=== PATIENT | female | born 1985 | race Caucasian/White ===

== ENCOUNTER 2019-09-08 09:40 | Outpatient (CLI) | payer OTHER, SELFPAY ==
--- NOTE | 2019-09-08 | XR_ITS ---
WS: [id number] Right hand, 3 views, 09/08/2019 Clinical Data: RIGHT HAND PAIN Comparison: None. Findings: There is a fracture of the base of the right fifth metacarpal. No other fractures are seen. There are no dislocations. The carpal bones and phalanges are intact. Th e joint spaces are normal. XR/XR hand RT min 3V* [id number] Impression: Fracture of the base of right fifth metacarpal.
== END 2019-09-08 09:41 | disposition home or self-care (01) ==
LOC: RADOUTREAD 15:43
PROVIDERS: Family Provider Family Medicine; PCP Family Medicine; Referring Provider Nurse Practitioner Family; Visit Provider Nurse Practitioner Family
DX: S62.316A Displaced fracture of base of fifth metacarpal bone, right hand, initial encounter for closed fracture (principal); W22.8XXA Striking against or struck by other objects, initial encounter; M79.641 Pain in right hand

== ENCOUNTER → 2019-09-18 13:59 | Outpatient (BNVA) | payer OTHER, SELFPAY | PROVIDERS: Family Provider Family Medicine; PCP Family Medicine; Referring Provider Nurse Practitioner Family; Visit Provider Orthopaedic Surgery | DX: S62.316A Displaced fracture of base of fifth metacarpal bone, right hand, initial encounter for closed fracture (principal); X58.XXXA Exposure to other specified factors, initial encounter | CPT/HCPCS: 73130 ==

== ENCOUNTER 2024-08-10 13:57 | Emergency (ER) | payer OTHER, SELFPAY ==
[2024-08-10 14:11] VITALS: BP 120/86; PULSE 99; RESP 18; TEMP 36.7; O2SAT 99; BMI 33.2
--- NOTE | 2024-08-10 15:15 | CTR_ITS ---
PROCEDURE INFORMATION: Exam: CT Abdomen And Pelvis With Contrast Exam date and time: 08/10/2024 4:10 PM Age: 39 years old Clinical indication: Abdominal pain; Localized; Lower; Additional info: Abd pain TECHNIQUE: Imaging protocol: Computed tomography of the abdomen and pelvis with contrast. Radiation optimization: All CT scans at this facility use at least one of these dose optimization techniques: automated exposure control; mA and/or kV adjustment per patient size (includes targeted exams where dose is matched to clinical indication); or iterative reconstruction. Contrast material: OMNIPAQUE 350; Contrast volume: 100 ml; Contrast route: INTRAVENOUS (IV); COMPARISON: No relevant prior studies available. RADIATION DOSE METRICS: Total DLP (mGy-cm): 714.4 FINDINGS: Liver: Normal. No mass. Gallbladder and biliary ducts: Layering density in the gallbladder lumen. No gallbladder wall thickening. No biliary ductal dilatation. Pancreas: Normal. No ductal dilation. Spleen: Normal. No splenomegaly. Adrenal glands: 1.2 cm low-density left adrenal nodule. Kidneys and ureters: Normal. No hydronephrosis. Stomach and bowel: A few scattered colonic diverticula are seen. No evidence of acute diverticulitis. A few prominent fluid-filled small bowel loops are seen centrally in the abdomen. No evidence of bowel obstruction. Appendix: No evidence of appendicitis. Intraperitoneal space: Unremarkable. No free air. No significant fluid collection. Vasculature: Unremarkable. No abdominal aortic aneurysm. Lymph nodes: Trace fat stranding along the mesenteric root with a few mildly prominent mesenteric lymph nodes. Urinary bladder: Unremarkable as visualized. Reproductive: Unremarkable as visualized. Bones/joints: Unremarkable. No acute fracture. Soft tissues: Small fat containing umbilical hernia. CT/CT abdomen pelvis w con* [id number] IMPRESSION: 1. Mildly prominent fluid-filled small bowel loops could represent enteritis. No evidence of bowel obstruction. 2. Layering density in the gallbladder lumen could represent sludge/stones. No CT evidence of acute cholecystitis. 3. Trace mesenteric root fat stranding with a few mildly prominent mesenteric lymph nodes. Findings are nonspecific but can be seen with sclerosing mesenteritis among other etiologies. 4. 1.2 cm left adrenal nodule likely represents a benign lipid rich adenoma or possibly myelolipoma. No follow-up is necessary. (Reference: Malena) REFERENCES: Malena PHOENIX, et al. Management of Incidental Adrenal Masses: A White Paper of the ACR Incidental Findings Committee. J Am [employer] Radiol. 2017;14(8):1731-8359.
--- NOTE | 2024-08-10 15:35 | ED_ITS ---
HPI - Nausea/Vomiting/Diarrhea 2 General: Chief complaint: Nausea/Vomiting/Diarrhea Stated complaint: blood in stool and vomit Time Seen by Provider: 08/10/24 14:23 Source: patient Mode of arrival: ambulatory Limitations: no limitations History of Present Illness: 39-year-old female who states that she h as been having nausea vomiting diarrhea since yesterday states she has had multiple episodes she has been having diffuse abdominal cramping states she had a small amount of blood she had noticed in her vomiting and diarrhea today but not much. She denies any fevers denies any worse or improving factors Associated nausea: Yes Associated symtoms: Reports nausea; Denies chest pain, dysuria or headache(s) Related Data Previous Rx's Medication Instructions Recorded fluticasone propionate 50 1 spray intranasal DAILY PRN 10/08/23 mcg/actuation nasal allergy symptoms #16 grams spray,suspension (Flonase Allergy Relief) ondansetron 4 mg disintegrating 4 mg PO Q6H PRN nausea and 08/10/24 tablet vomiting #14 tabs Allergies Allergy/AdvReac Type Severity Reaction Status Date / Time penicillin G Allergy ADR-Vomitin Verified 10/08/23 12:06 g Review of Systems 2 Const: Denies: fever(s), chills, body aches or change in appetite ENMT: Denies: throat pain or dental pain Card: Denies: chest pain Resp: Denies: dyspnea GI: Reports: abdominal pain, nausea and vomiting; Denies: diarrhea : Denies: dysuria Musc: Denies: neck pain or back pain Skin/Breast: Denies: rash Neuro: Denies: headache(s) PFSH ED 2 PFSH: Social History Smoking and tobacco/nicotine status: former use of tobacco/nicotine Physical Exam 2 Const: COMMON NORMALS: no acute distress, patient oriented x3 and healthy appearing HENMT: COMMON NORMALS: normocephalic and atraumatic HEAD & SCALP: n ormocephalic and atraumatic Neck/C-Spine: COMMON NORMALS: full ROM and supple Chest: COMMONS NORMALS: normal inspection of the chest Resp: COMMON NORMALS: normal respiratory effort Cardio: COMMON NORMALS: regular rate, regular rhythm and No murmurs present (Cardio) RATE: regular rate RHYTHM: regular rhythm GI: COMMON NORMALS: Normal to inspection, nondistended, normoactive bowel sounds present, Soft to palpation and no masses PALPATION: Yes Soft to palpation OTHER: Mild abdominal tenderness Extremity: COMMON NORMALS: normal to inspection and full ROM Neuro: COMMON NORMALS: patient oriented x3, moves all extremities and no focal motor deficits Psych: COMMON NORMALS: mental status grossly normal, Normal thought process present and cooperative THOUGHT PROCESS: Normal thought process present Skin: COMMON NORMALS: no rashes or lesions noted and no wounds GENERAL SKIN EXAM: no rashes or lesions noted Course 2 Vital Signs: Vital signs: Vital Signs Temperature 98.1 F 08/10/24 14:11 Pulse Rate 88 08/10/24 15:47 Respiratory Rate 20 H 08/10/24 15:44 Blood Pressure 131/87 08/10/24 15:47 Pulse Oximetry 91 08/10/24 15:47 Oxygen Delivery Me thod Room Air 08/10/24 15:47 MDM - Nausea/Vomiting/Diarrhea Medical Decision Making Patient presents here with vomiting along with some abdominal pain is likely gastroenteritis blood work CT scan showed no acute finding she feels much improved after Zofran abdominal exam at discharge benign we will prescribe her Zofran she is follow-up with PCP she is return if worsening she understands agrees to plan. Medical Records I reviewed the patient's medical records. Lab Data I reviewed the patient's lab results. 08/10/24 15:37 08/10/24 15:37 Radiology Impressions Abdomen/Pelvis CT 08/10/24 15:15 IMPRESSION: 1. Mildly prominent fluid-filled small bowel loops could represent enteritis. No evidence of bowel obstruction. 2. Layering density in the gallbladder lumen could represent sludge/stones. No CT evidence of acute cholecystitis. 3. Trace mesenteric root fat stranding with a few mildly prominent mesenteric lymph nodes. Findings are nonspecific but can be seen with sclerosing mesenteritis among other etiologies. 4. 1.2 cm left adrenal nodule likely represents a benign lipid rich adenoma or possibly myelolipoma. No follow-up is necessary. (Reference: Malena) REFERENCES: Malena PHOENIX, et al. Management of Incidental Adrenal Masses: A White Paper of the ACR Incidental Findings Committee. J Am [place] [facility]iol. 2017;14(8):4412-2894. Laboratory Results WBC 6.09 10^3/uL (3.29-11.43) 08/10/24 15:37 RBC 4.99 10^6/uL (3.85-5.65) 08/10/24 15:37 Hgb 13.60 g/dL (11.27-16.99) 08/10/24 15:37 Hct 42.1 % (36-47) 08/10/24 15:37 MCV 84.4 fl (85-98) L 08/10/24 15:37 MCH 27.3 pg (27-33) 08/10/24 15:37 MCHC 32.3 g/dL (30-55) 08/10/24 15:37 RDW 12.7 % (12.1-15.1) 08/10/24 15:37 Plt Count 222 10^3/cmm (157-399) 08/10/24 15:37 MPV 10.4 fL (7.4-10.4) 08/10/24 15:37 Neut % (Auto) 70.9 % 08/10/24 15:37 Lymph % (Auto) 19.4 % 08/10/24 15:37 Avery % (Auto) 9.0 % 08/10/24 15:37 Eos % (Auto) 0.3 % 08/10/24 15:37 Baso % (Auto) 0.2 % 08/10/24 15:37 Neut # (Auto) 4.32 10^3/uL (1.8-7.7) 08/10/24 15:37 Lymph # (Auto) 1.2 10^3/uL (0.8-4.8) 08/10/24 15:37 Avery # (Auto) 0.6 10^3/uL (0.2-0.9) 08/10/24 15:37 Eos # (Auto) 0.0 10^3/uL (0.0-0.8) 08/10/24 15:37 Baso # (Auto) 0.0 10^3/uL (0.0-0.1) 08/10/24 15:37 Nucleated RBC % (auto) 0 % 08/10/24 15:37 Nucleated RBCs # 0.0 /100WBC 08/10/24 15:37 PT 14.20 SECONDS (12.1-14.9) 08/10/24 15:37 INR 1.06 (0.8-1.2) 08/10/24 15:37 Sodium 133 mmol/L (136-145) L 08/10/24 15:37 Potassium 3.4 mmol/L (3.5-5.1) L 08/10/24 15:37 Chloride 99 mmol/L (98-107) 08/10/24 15:37 Carbon Dioxide 24 mmol/L (22-29) 08/10/24 15:37 Anion Gap 13.4 (5-19) 08/10/24 15:37 BUN 11 mg/dL (6-20) 08/10/24 15:37 Creatinine 0.7 mg/dL (0.5-0.9) 08/10/24 15:37 GFR Calculation 93.6 mL/min (90-130) 08/10/24 15:37 Glucose 103 mg/dL (65-115) 08/10/24 15:37 Calculated Osmolality 276 mOsm/kg (285-295) L 08/10/24 15:37 Calcium 9.2 mg/dL (8.5-10.5) 08/10/24 15:37 Total Bilirubin 0.9 mg/dL (0.15-1.2) 08/10/24 15:37 AST 16 U/L (0-32) 08/10/24 15:37 ALT 10 U/L (0-33) 08/10/24 15:37 Alkaline Phosphatase 50 U/L (35-105) 08/10/24 15:37 Total Protein 7.7 g/dL (6.6-8.7) 08/10/24 15:37 Albumin 4.2 g/dL (3.5-5.2) 08/10/24 15:37 Globulin 3.5 g/dL (1.3-4.6) 08/10/24 15:37 Lipase 11 U/L (13-60) L 08/10/24 15:37 HCG, Qual Negative (Negative) 08/10/24 15:37 Urine Color Yellow (Yellow) 08/10/24 16:24 Urine Appearance Clear (CLEAR) 08/10/24 16:24 Urine pH 5.5 (5-7) 08/10/24 16:24 Ur Specific Bellamy 1.034 (1.005-1.030) H 08/10/24 16:24 Urine Protein Negative (Negative) 08/10/24 16:24 Urine Glucose (UA) Negative (Normal) 08/10/24 16:24 Urine Ketones Negative (Negative) 08/10/24 16:24 Urine Blood Negative (Negative) 08/10/24 16:24 Urine Nitrate Negative (Negative) 08/10/24 16:24 Urine Bilirubin Negative (Negative) 08/10/24 16:24 Urine Urobilinogen 0.2 mg/dL (Negative) 08/10/24 16:24 Ur Leukocyte Esterase Negative (Negative) 08/10/24 16:24 Urine RBC 0-4 /hpf (0-2) H 08/10/24 16:24 Urine WBC 0-4 /hpf (0-5) H 08/10/24 16:24 Ur Squamous Epith Cells 5-10 /hpf (0-5) H 08/10/24 16:24 Amorphous Sediment Not Reportable 08/10/24 16:24 Urine Bacteria 1+ /hpf (NONE) H 08/10/24 16:24 All radiology interpretation(s) finalized by discharge Discharge Plan Discharge Patient Disposition: Home Clinical Impression: Vomiting, Abdominal pain Condition: Stable Prescriptions: New ondansetron 4 mg tablet,disintegrating 4 mg PO Q6H PRN (Reason: nausea and vomiting) Qty: 14 0RF No Action fluticasone propionate [Flonase Allergy Relief] 50 mcg/actuation spray,suspension 1 spray intranasal DAILY PRN (Reason: allergy symptoms) Qty: 16 0RF Rx Instructions: administer into each nostril Discharge Orders: Discharge ED (Routine); Ordered 08/10/24 Ordered By: Davie Mena Referrals: Nirmal Black MD [Family Provider] - 4-7 days Discharge Diet: Advance as tolerated Discharge Activity: Resume usual activity Patient Instructions: Acute Nausea and Vomiting (ED), Abdominal Pain (ED) Coding Level of Care Code ED [employer] Director for Behzad Godoy
[2024-08-10 15:41] LABS: Basophils % 0.2 %; Eosinophils % 0.3 %; Hematocrit 42.1 % (36-47); Lymphocytes # 1.2 10^3/uL (0.8-4.8); Lymphocytes % 19.4 %; Mean Corpuscular HGB Conc 32.3 g/dL (30-55); Mean Corpuscular Hemoglobin 27.3 pg (27-33); Mean Corpuscular Volume 84.4 fl (85-98); Mean Platelet Volume 10.4 fL (7.4-10.4); Monocytes # 0.6 10^3/uL (0.2-0.9); Neutrophils # 4.32 10^3/uL (1.8-7.7); Neutrophils % 70.9 %; Nucleated Red Blood Cells % 0 %; Platelet Count 222 10^3/cmm (157-399); Red Blood Count 4.99 10^6/uL (3.85-5.65); Red Cell Distribution Width 12.7 % (12.1-15.1); White Blood Count 6.09 10^3/uL (3.29-11.43)
[2024-08-10 15:44] VITALS: RESP 20
[2024-08-10] MEDS: ondansetron 2 mg/ML SDV 2 mL 4 MG IVP (15:44)
[2024-08-10] MEDS: sodium chloride 0.9% 1,000 ML 999 ML IV (15:44)
[2024-08-10] MEDS: morphine 4 mg/mL SDV 1 mL IVP (15:44)
[2024-08-10 15:47] VITALS: BP 131/87; PULSE 88; O2SAT 91
[2024-08-10 15:50] LABS: HCG, Serum Qual Negative (Negative)
[2024-08-10 15:53] LABS: INR 1.06 (0.8-1.2)
[2024-08-10 16:00] LABS: Alanine Aminotransferase 10 U/L (0-33); Albumin Level 4.2 g/dL (3.5-5.2); Alkaline Phosphatase 50 U/L (35-105); Anion Gap 13.4 (5-19); Aspartate Amino Transferase 16 U/L (0-32); Blood Urea Nitrogen 11 mg/dL (6-20); Calcium 9.2 mg/dL (8.5-10.5); Carbon Dioxide 24 mmol/L (22-29); Chloride 99 mmol/L (98-107); Creatinine Clr Calc Pharmacy 104.2684; Globulin 3.5 g/dL (1.3-4.6); Glomerular Filtration Rate 93.6 mL/min (90-130); Glucose 103 mg/dL (65-115); Lipase 11 U/L (13-60); Osmolality Calculated 276 mOsm/kg (285-295); Potassium 3.4 mmol/L (3.5-5.1); Sodium 133 mmol/L (136-145); Total Bilirubin 0.9 mg/dL (0.15-1.2); Total Protein 7.7 g/dL (6.6-8.7)
[2024-08-10] MEDS: iohexol 350 mg/mL 500 mL Btl (per mL) IV (16:21)
[2024-08-10 16:30] LABS: Bilirubin Urine Negative (Negative); Blood Urine Negative (Negative); Glucose Urine UA Negative (Normal); Ketones Urine Negative (Negative); Leukocyte Esterase Urine Negative (Negative); Nitrate Urine Negative (Negative); Protein Urine Negative (Negative); Urine Appearance Clear (CLEAR); Urine Color Yellow (Yellow); Urobilinogen Urine 0.2 mg/dL (Negative); pH Urine 5.5 (5-7)
[2024-08-10 16:34] LABS: Specific Gravity, Urine 1.034 (1.005-1.030)
[2024-08-10 16:43] LABS: Add Urine Microscopic? YES; Bacteria Urine 1+ /hpf; RBC Urine 0-4 /hpf (0-2); UA Manual Slide Review YES; WBC Urine 0-4 /hpf (0-5)
[2024-08-10 17:22] VITALS: BP 127/84; PULSE 77; O2SAT 95
== END 2024-08-10 17:25 | disposition home or self-care (01) ==
PROVIDERS: Emergency Provider Emergency Medicine; Family Provider Family Medicine
DX: R11.10 Vomiting, unspecified (principal); R10.9 Unspecified abdominal pain; Z87.891 Personal history of nicotine dependence
CPT/HCPCS: 74177; 80053; 81001; 83690; 84703; 85025; 85610; 96361; 96374; 96375; 99285; J2270; J2405; J7030